=== PATIENT | female | born 1955 | race Caucasian/White ===

== ENCOUNTER 2019-11-28 09:05 | Outpatient (CLI) | payer MEDICARE, SELFPAY ==
--- NOTE | ~2019-11-28 | MM_ITS ---
EXAMINATION: MM screening [facility] BI w tony HISTORY: Screening mammogram; history of left breast malignancy and partial mastectomy, with reductio n mammoplasty on the right. TECHNIQUE: Craniocaudal and mediolateral oblique 3-D tomosynthesis images were obtained and synthetic 2-D images were generated. CAD analysis was submitted and interpreted. COMPARISON: 11/22/2018, 11/10/2017, 05/17/2017, 11/08/2016 mammogram examinations BREAST PARENCHYMAL COMPOSITION: The breasts are heterogeneously dense, which may obscure small masses . FINDINGS: Status post left partial mastectomy and reduction mammoplasty on the right with areas of ca lcified fat necrosis bilaterally. There is no evidence of interval suspicious mass, calcification, or architectural distortion to suggest malignancy in either breast. There has been no suspicious interv al change. IMPRESSION: 1. No mammographic evidence of malignancy. 2. Recommend routine screening mammography in one year. BI-RADS Category 2: Benign finding(s). Reviewed, dictated and finalized at location A.
== END 2019-11-28 09:06 | disposition home or self-care (01) ==
LOC: ANHIMG 09:10
PROVIDERS: PCP Family Medicine; Visit Provider Internal Medicine
DX: Z12.31 Encounter for screening mammogram for malignant neoplasm of breast (principal)
CPT/HCPCS: 77063; 77067

== ENCOUNTER 2020-06-21 11:37 | Emergency (ER) | payer MEDICARE, SELFPAY ==
--- NOTE | ~2020-06-21 | XR_ITS ---
EXAMINATION: XR hand LT min 3V INDICATION: Left hand pain, initial encounter TECHNIQUE: Three views of the left hand are obtained. COMPARISON: None available FINDINGS: There is an acute, traumatic, oblique fracture in the shaft of the fifth metacarpal. An ove rlying soft tissue defect is present which could reflect an open fracture. No additional acute osseou s findings are evident. There is mild osteoarthritis of multiple interphalangeal joints. IMPRESSION: 1. Acute oblique fracture in the shaft of the fifth metacarpal with overlying soft tissue defect. Ope n fracture not excluded. Reviewed, dictated and finalized at location A. [employer] IMPRESSION: 1. Acute oblique fracture in the shaft of the fifth metacarpal with overlying s oft tissue defect. Open fracture not excluded.
[2020-06-21 11:47] VITALS: BP 165/87; PULSE 88; RESP 16; TEMP 36.3; O2SAT 97
--- NOTE | 2020-06-21 12:01 | ED.WOUNDLAC ---
HPI - Wound/Laceration General Chief Complaint: Wound/Laceration Stated Complaint: laceration to left hand Time Seen by Provider: 06/21/20 11:47 Source: patient Mode of arrival: ambulatory Limitations: no limitations History of Present Illness HPI narrative: This is a 65 year old female that presents to the ER for left hand laceration sustained just prior to arrival. Reports she was trying to get the neighbors dog back in their yard. Reports her hand got caught in its chain and she sustained a laceration to the left hand. Reports swelling and pain to the area. Denies decreased ROM or numbness. Related Data Allergies Allergy/AdvReac Type Severity Reaction Status Date / Time No Known Allergies Allergy Verified 06/21/20 11:46 Review of Systems Review of Systems: Narrative: CONSTITUTIONAL: Denies fever SKIN: Reports laceration MUSCULOSKELETAL: Reports joint pain, and myalgia. NEUROLOGIC: Denies numbness All systems reviewed & are unremarkable except as noted in HPI and below PMFSH Past Medical History Medical History (Updated 06/21/20 @ 13:48 by Jojo Jules PA-C) History of breast cancer History of ITP Exam Narrative: Exam Narrative: GENERAL: Well-appearing, well-nourished, and in no acute distress. HEAD: Normocephalic, atraumatic. EYES: EOMI. EXTREMITIES: Normal range of motion. Bruising to the left hand dorsal surface. Left hand dorsal surface with 4cm linear laceration into subcutaneous tissue. Additional 1.5cm superficial linear laceration to the dorsal surface of the hand SKIN: Warm, dry, no rash. NEURO: No focal deficits. Alert and oriented x3. PSYCH: Normal mood and affect Course Consultations Consultation #1: Spoke with Dr. Luna about patient and workup who will follow up in clinic Date: 06/21/20 Time: 13:45 Vital Signs Vital signs: Vital Signs Temperature 97.3 F L 06/21/20 11:47 Pulse Rate 88 06/21/20 11:47 Respiratory Rate 16 06/21/20 11:47 Blood Pressure 165/87 H 06/21/20 11:47 Pulse Oximetry 97 06/21/20 11:47 Temperature 97.3 F L 06/21/20 11:47 Pulse Rate 89 06/21/20 13:42 Respiratory Rate 18 06/21/20 13:42 Blood Pressure 168/89 H 06/21/20 13:42 Pulse Oximetry 98 06/21/20 13:42 Procedures Laceration Laceration 1: Date: 06/21/20 Time: 13:40 Site: hand Side (If applicable): left Size (cm): 4 Description: linear Depth: simple, single layer Local Anesthetic: lidocaine 1% and with epi Amount of anesthesia used (mL): 4 Pre-repair: wound explored and irrigated extensively ====== Skin Level ====== Skin layer closed with: nylon Size (cm): 4-0 Number of sutures: 4 Technique: simple, interrupted ====== Subcutaneous Layer ====== ====== Muscle Layer ====== ====== Tendon Layer ====== Orthopedic Splinting/Casting Injury #1: Splinting/Casting Date: 06/21/20 Splinting/Casting Time: 13:40 Side: left Upper Extremity Injury Location: hand Upper Extremity Immobilizer: ulnar gutter Splint: customized in ED OCL: ulnar gutter Pre-Procedure Neuro Vascular Exam: normal Post-Procedure Neuro Vascular Exam: normal MDM - Wound/Laceration MDM Narrative Medical decision making narrative: Patient presents to the emergency department for left hand injury sustained just prior to arrival. Left hand x-ray shows an acute oblique fracture in the shaft of the fifth metacarpal. Patient does have a laceration in this area. Although upon exploration I do not see bone. I did extensively irrigate the wound and closed with sutures. Patient is up to date on tetanus. Given a dose of Ancef in the ED and will be sent with oral antibiotics. Spoke with Dr. Luna about patient and work-up will follow-up in clinic. Patient placed in ulnar gutter. She was given warnings to return to the ER Imaging Data Radiologist's impression:
[2020-06-21] MEDS: WATER, STERILE FOR INJECTION 10 ML VIAL XX (13:34)
[2020-06-21] MEDS: ceFAZolin SODIUM 1 GM VIAL IM (13:40)
[2020-06-21 13:42] VITALS: BP 168/89; PULSE 89; RESP 18; O2SAT 98
[2020-06-21 14:26] VITALS: BP 168/86; PULSE 84; O2SAT 98
== END 2020-06-21 14:27 | disposition home or self-care (01) ==
PROVIDERS: Emergency Provider Emergency Medicine; PCP Family Medicine
DX: S62.327B Displaced fracture of shaft of fifth metacarpal bone, left hand, initial encounter for open fracture (principal); Z85.3 Personal history of malignant neoplasm of breast; W23.1XXA Caught, crushed, jammed, or pinched between stationary objects, initial encounter
CPT/HCPCS: 12002; 29125; 73130; 96372; 99284; J0690

== ENCOUNTER → 2020-10-29 10:59 | Outpatient (CLI) | payer MEDICARE, SELFPAY ==
--- NOTE | ~2020-10-29 | DEXA_ITS ---
Bone Density Report Name: Jelena Davis Age: 65 Sex: Female Ethnicity: White Date of : 1955 Indication: monitoring treatment; parental hip fracture; height loss; hysterectomy; postmenopausal Referring Provider: Bing Nobles Study: Bone densitometry was performed. Exam Date: October 29, 2020 Accession number: [id number] Bone Density: Region BMD T-score Z-score Classification AP Spine (L2, L3, L4) 1.217 1.3 3.2 Normal Femoral Neck (Left) 0.793 -0.5 1.1 Normal Total Hip (Left) 0.963 0.2 1.5 Normal Femoral Neck (Right) 0.775 -0.7 1.0 Normal Total Hip (Right) 0.891 -0.4 0.9 Normal Total Hip Mean 0.927 -0.1 1.2 Normal World Health Organization criteria for BMD impression classify patients as: Normal (T-score at or above -1.0), Osteopenia (T-score between -1.0 and -2.5), or Osteoporosis (T-score at or below -2.5). 10-year Fracture Risk: FRAX not reported because: All T-scores for Spine Total, Hip Total, Femoral Neck at or above -1.0 Treated for osteoporosis Previous Exams: Region Exam Age BMD T-score BMD Change BMD Change Date g/cm2 vs Baseline vs Previous AP Spine(L2, L3, L4) 10/29/2020 65 1.217 1.3 0.041* 0.041* 07/05/2018 63 1.175 0.9 Total Hip(Left) 10/29/2020 65 0.963 0.2 -0.114* 0.073* 07/05/2018 63 0.891 -0.4 -0.186* -0.103* 03/15/2016 60 0.994 0.4 -0.083* -0.012 04/16/2013 57 1.006 0.5 -0.072* 0.001 11/17/2009 54 1.005 0.5 -0.073* -0.073* 08/08/2006 51 1.077 1.1 Total Hip(Right) 10/29/2020 65 0.891 -0.4 -0.169* 0.001 07/05/2018 63 0.891 -0.4 -0.169* -0.045* 03/15/2016 60 0.935 -0.1 -0.125* -0.058* 04/16/2013 57 0.994 0.4 -0.066* 0.028* 11/17/2009 54 0.965 0.2 -0.095* -0.095* 08/08/2006 51 1.060 1.0 *Denotes significance at 95% confidence level, LSC for AP Spine = 0.022 g/cm2, LSC for Total Hip = 0.027 g/cm2 Clinical Information Provided by Patient: Parent has had a hip fracture Is being treated for osteoporosis Has used the following medications: Vitamin D, MTV Has the following medical conditions: Hysterectomy, stage 3 kidney disease currently, breast cancer 2015, uterine cancer 2002 Patient maximum height was 66 Menopause Age: 47 No regular weight bearing exercise Does not regularly consume dairy products Drinks caffeinated bever
== END ==
PROVIDERS: PCP Physician Assistant Medical
DX: Z78.0 Asymptomatic menopausal state (principal); Z13.820 Encounter for screening for osteoporosis; D63.8 Anemia in other chronic diseases classified elsewhere; D69.59 Other secondary thrombocytopenia; T50.905A Adverse effect of unspecified drugs, medicaments and biological substances, initial encounter; D05.12 Intraductal carcinoma in situ of left breast; D50.9 Iron deficiency anemia, unspecified
CPT/HCPCS: 77080

== ENCOUNTER 2020-11-17 10:11 | Outpatient (CLI) | payer MEDICARE, SELFPAY ==
--- NOTE | ~2020-11-17 | MM_ITS ---
EXAMINATION: MM screening [facility] BI w tony HISTORY: Screening TECHNIQUE: Craniocaudal and mediolateral oblique 3-D tomosynthesis images were obtained and synthetic 2-D images were generated. CAD analysis was submitted and interpreted. COMPARISON: Comparison to multiple prior studies sequentially, with oldest reviewed study dated 05/24. BREAST PARENCHYMAL COMPOSITION: The breasts are heterogeneously dense, which may obscure small masses . FINDINGS: There are areas of fat necrosis with developing amorphous calcifications in the subareolar location of both breasts. There are no new masses, calcifications or architectural distortion in eith er breast to suggest malignancy. IMPRESSION: 1. No mammographic evidence of malignancy. 2. Recommend routine screening mammography in one year. BI-RADS Category 2: Benign finding(s). Reviewed, dictated and finalized at location A.
== END 2020-11-17 10:12 | disposition home or self-care (01) ==
LOC: ANHIMG 10:16
PROVIDERS: PCP Physician Assistant Medical
DX: Z12.31 Encounter for screening mammogram for malignant neoplasm of breast (principal)
CPT/HCPCS: 77063; 77067

== ENCOUNTER 2021-11-20 09:43 | Outpatient (CLI) | payer MEDICARE, SELFPAY ==
--- NOTE | ~2021-11-20 | MM_ITS ---
EXAMINATION: MM screening [facility] BI w tony HISTORY: Screening TECHNIQUE: Craniocaudal and mediolateral oblique 3-D tomosynthesis images were obtained and synthetic 2-D images were generated. CAD analysis was submitted and interpreted. COMPARISON: Comparison to multiple prior studies sequentially, with oldest reviewed study dated 11/08. BREAST PARENCHYMAL COMPOSITION: The breasts are heterogenously dense, which may obscure small masses FINDINGS: There are benign coarse bilateral breast calcifications, consistent with fat necrosis. Ther e is no evidence of suspicious mass, calcification, or architectural distortion to suggest malignancy in either breast. There has been no suspicious interval change. IMPRESSION: 1. No mammographic evidence of malignancy. 2. Recommend routine screening mammography in one year. BI-RADS Category 2: Benign finding(s). Reviewed, dictated and finalized at location A.
== END 2021-11-20 09:44 | disposition home or self-care (01) ==
PROVIDERS: PCP Physician Assistant Medical; Visit Provider Obstetrics & Gynecology Gynecology
DX: Z12.31 Encounter for screening mammogram for malignant neoplasm of breast (principal)
CPT/HCPCS: 77063; 77067

== ENCOUNTER 2022-12-04 08:26 | Outpatient (CLI) | payer MEDICARE, SELFPAY ==
--- NOTE | ~2022-12-04 | MM_ITS ---
EXAMINATION: MM screening [facility] BI w tony HISTORY: Screening mammogram TECHNIQUE: Craniocaudal and mediolateral oblique 3-D tomosynthesis images were obtained and synthetic 2-D images were generated. CAD analysis was submitted and interpreted. COMPARISON: 11/20/2021, 11/17/2020, 11/28/2019 BREAST PARENCHYMAL COMPOSITION: The breasts are heterogeneously dense, which may obscure small masses . FINDINGS: There are chronic, stable areas of dystrophic calcification and oil cysts in both breasts r elated to prior surgical change. No suspicious mass, calcification, or architectural distortion are i dentified in either breast to suggest malignancy. There has been no suspicious interval change. IMPRESSION: 1. No mammographic evidence of malignancy. 2. Recommend routine screening mammography in one year. BI-RADS Category 2: Benign finding(s). Reviewed, dictated and finalized at location A.
== END 2022-12-04 08:27 | disposition home or self-care (01) ==
LOC: ANHIMG 08:30
PROVIDERS: PCP Physician Assistant Medical; Visit Provider Obstetrics & Gynecology Gynecology
DX: Z12.31 Encounter for screening mammogram for malignant neoplasm of breast (principal)
CPT/HCPCS: 77063; 77067